=== PATIENT | female | born 1940 | race Caucasian/White ===

== ENCOUNTER → 2016-07-18 | Outpatient (CLI) | payer OTHER ==
[2014-03-11 15:20] VITALS: BP 134/83
== END ==
LOC: LAB 10:47
DX: R30.0 Dysuria (principal); E87.1 Hypo-osmolality and hyponatremia

== ENCOUNTER → 2018-01-21 | Outpatient (CLI) | payer MEDICARE ==
[2014-03-11 15:20] VITALS: BP 134/83
== END ==
LOC: CARDLAB 01-04 08:02 → CARDREHAB 12:30 → CARDLAB 13:28
DX: G47.33 Obstructive sleep apnea (adult) (pediatric) (principal); R06.83 Snoring; G47.34 Idiopathic sleep related nonobstructive alveolar hypoventilation; R53.83 Other fatigue; Z82.49 Family history of ischemic heart disease and other diseases of the circulatory system
CPT/HCPCS: G0399

== ENCOUNTER → 2018-03-07 | Outpatient (CLI) | payer MEDICARE ==
[2014-03-11 15:20] VITALS: BP 134/83
[2018-03-07 10:59] LABS: EOS # 0.2 (0.04-0.40); HEMATOCRIT 41.4 % (37.0-47.0); HEMOGLOBIN 13.6 g/dL (12.5-16.0); LYMPH# 1.8 (1.50-4.00); MEAN CELL VOLUME 91 fl (78-100); MEAN CORPUSCULAR HEMOGLOBIN 30 pg (27-31); MEAN CORPUSCULAR HGB CONC 33 g/dL (33-37); MEAN PLATELET VOLUME 10.9 fl (7.4-10.4); MONO # 0.8 (0.20-0.80); NEU # 3.5 (1.40-6.50); PLATELET COUNT 227 K/mm3 (130-400); RED BLOOD COUNT 4.55 M/mm3 (4.10-5.30); RED CELL DISTRIBUTION WIDTH 14.6 % (11.5-14.5); WHITE BLOOD COUNT 6.3 K/mm3 (4.8-10.8)
== END ==
LOC: LAB 10:45
PROVIDERS: Family Medicine
DX: D64.9 Anemia, unspecified (principal)

== ENCOUNTER → 2019-02-06 | Outpatient (CLI) | payer MEDICARE ==
[2014-03-11 15:20] VITALS: BP 134/83
== END ==
LOC: CARDREHAB 09:53
DX: Z00.00 Encounter for general adult medical examination without abnormal findings (principal); Z13.6 Encounter for screening for cardiovascular disorders; J30.9 Allergic rhinitis, unspecified; R09.89 Other specified symptoms and signs involving the circulatory and respiratory systems; Z82.49 Family history of ischemic heart disease and other diseases of the circulatory system

== ENCOUNTER → 2021-04-28 | Outpatient (CLI) | payer MEDICARE ==
[2021-04-28 15:50] LABS: ALBUMIN 3.6 g/dL (3.4-4.8); POTASSIUM 3.4 mmol/L (3.5-5.1)
[2021-04-28 15:51] LABS: CALCIUM 9.6 mg/dL (8.3-10.5)
[2021-04-28 15:53] LABS: TOTAL PROTEIN 7.5 g/dL (6.2-8.1)
[2021-04-28 15:54] LABS: TOTAL BILIRUBIN 0.3 mg/dL (0.2-1.2)
== END ==
LOC: LAB 15:20
PROVIDERS: Family Medicine
DX: K86.89 Other specified diseases of pancreas (principal); M54.50 Low back pain, unspecified; R11.0 Nausea; R10.9 Unspecified abdominal pain; R68.81 Early satiety

== ENCOUNTER → 2021-05-11 | Outpatient (CLI) | payer MEDICARE ==
[2021-05-11 13:02] LABS: URINE WBC 0 /hpf (0-3)
[2021-05-11 13:52] LABS: URINE APPEARANCE CLEAR; URINE BILIRUBIN NEGATIVE (NEGATIVE); URINE BLOOD NEGATIVE (NEGATIVE); URINE COLOR YELLOW; URINE GLUCOSE NEGATIVE (NEGATIVE); URINE KETONE NEGATIVE (NEGATIVE); URINE LEUKOCYTE ESTERASE NEGATIVE (NEGATIVE); URINE NITRATE NEGATIVE (NEGATIVE); URINE PROTEIN(semi-quant) TRACE (NEGATIVE); URINE UROBILINOGEN NORMAL (NORMAL)
== END ==
LOC: LAB 12:52
PROVIDERS: Family Medicine
DX: M54.50 Low back pain, unspecified (principal)

== ENCOUNTER → 2021-05-13 | Outpatient (CLI) | payer MEDICARE ==
[2021-05-13 11:56] LABS: HEMATOCRIT 40.6 % (37.0-47.0); HEMOGLOBIN 13.2 g/dL (12.5-16.0); MEAN PLATELET VOLUME 10.5 fl (7.4-10.4); RED BLOOD COUNT 4.46 M/mm3 (4.10-5.30); RED CELL DISTRIBUTION WIDTH 15.3 % (11.5-14.5); WHITE BLOOD COUNT 5.5 K/mm3 (4.8-10.8)
[2021-05-15 17:52] LABS: SJOGRENS SSA 7 U/mL (0-99); SJOGRENS SSB 3 U/mL (0-99)
== END ==
LOC: LAB 11:41
PROVIDERS: Family Medicine
DX: M54.50 Low back pain, unspecified (principal); I10 Essential (primary) hypertension